=== PATIENT | male | born 1980 | race Two or more races ===

== ENCOUNTER 2018-09-27 07:50 | Emergency (ER) | payer MEDICAID ==
[~2018-09-27] VITALS: Ht 182.9 cm; Wt 83.1 kg
[2018-09-27 07:52] VITALS: BP 138/95
--- NOTE | 2018-09-27 08:28 | NUR ---
PATIENT AMBULATED TO ROOM
[2018-09-27] MEDS ORDERED: KETOROLAC 30 MG/1 ML IM ONE (09:00)
[2018-09-27] MEDS ORDERED: CYCLOBENZAPRINE 10 MG TABLET PO ONE (09:00)
--- NOTE | 2018-09-27 09:26 | NUR ---
PATIENT PLACED IN RECHECK
--- NOTE | 2018-09-27 10:44 | NUR ---
AWAITNG RECHECK. PATIENT SLEEPING ON GURNEY WITH BLANKET
--- NOTE | 2018-09-27 10:59 | NUR ---
PT SLEEPING IN GURNEY, AROUSES TO VERBAL STIMULI. ABLE TO SIT UP IN BED WITH MODERATE NECK PAIN. NO ACUTE S/S OF DISTRESS. AWAITING RECHECK AT THIS TIME
== END 2018-09-27 11:30 | disposition home or self-care (01) ==
LOC: ED 09:47
DX: G24.3 Spasmodic torticollis (principal)
CPT/HCPCS: 96372; 99283; J1885